=== PATIENT | male | born 1975 | race Caucasian/White ===

== ENCOUNTER 2018-02-19 20:03 | Emergency (ER) | payer OTHER | END 2018-02-19 21:17 | disposition other institution (70) | LOC: ED 20:03 | DX: Z02.89 Encounter for other administrative examinations (principal) ==

== ENCOUNTER 2018-02-19 20:03 | Emergency (ER) | payer OTHER ==
[~2018-02-19] VITALS: Ht 177.8 cm; Wt 116.1 kg
[2018-02-19 20:10] VITALS: Ht 177.8 cm; Wt 116.1 kg
[2018-02-19 21:17] VITALS: BP 124/81
== END 2018-02-19 21:17 | disposition other institution (70) ==
LOC: ED 20:03
DX: M79.674 Pain in right toe(s) (principal); F10.129 Alcohol abuse with intoxication, unspecified; F17.210 Nicotine dependence, cigarettes, uncomplicated
CPT/HCPCS: 99406; Q0092